=== PATIENT | female | born 1960 | race Caucasian/White ===

== ENCOUNTER 2023-08-01 06:36 | Day surgery (SDC) | payer MEDICARE, OTHER, SELFPAY ==
[2023-08-01] VITALS (10 sets, daily range): BP systolic 124–142; BP diastolic 57–85; BMI 31.9
[2023-08-01] MEDS: NORMOSOL-R 1000 IV (10:45)
[2023-08-01] MEDS: CELEBREX 200 MG PO (10:55)
[2023-08-01] MEDS: TYLENOL 1000 MG PO (10:55)
[2023-08-01] MEDS: ROXICODONE 5 MG PO (16:56)
== END 2023-08-01 17:07 | disposition home or self-care (01) ==
LOC: SDS 06:36
PROVIDERS: ATTENDING PHYSICIAN Specialist
DX: M75.101 Unspecified rotator cuff tear or rupture of right shoulder, not specified as traumatic (principal)
CPT/HCPCS: 29827; 29828; C1713